=== PATIENT | male | born 1975 | race African-American/Black ===

== ENCOUNTER 2024-06-23 14:24 | Inpatient (IN) | payer MEDICAID, OTHER ==
[~2024-06-23] VITALS: Ht 177.8 cm; Wt 104.0 kg
--- NOTE | 2024-06-23 14:38 | ED.PDOC ---
HPI Comments This is a 48-year-old male who comes in with chief complaint of chest pain and palpitations. The patient states that approximately one week ago he started having some dizziness. The patient states that now the symptoms seemed to be more constant. He is experiencing some sharp chest pain rated as a 7/10. There is no radiation of the pain. There has been no shortness a breath, fever or chills. The patient drove himself to the emergency department's for evaluation. The patient does have a history of atrial fibrillation. Upon arrival, the patient had an Accu-Chek of 115. Chief Complaint: Palpitations Time Seen by MD: 14:26 Reviewed Notes: Nurses Notes, Medications, Allergies (No allergies to medications) Allergies: Coded Allergies: Marijuana (Cannabis Sativa) (Verified Allergy, Unknown, 06/23/24) Information Source: Patient Mode of Arrival: Ambulatory Severity: Moderate Timing: Hours Duration: Since onset Prehospital treatment: None Location: Substernal Radiation: No Radiation Quality: Sharp Onset: At Rest Cardiac Risk Factors: Smoker, Family History, Hyperlipidemia, HTN PE Risk Factors: None History of: Similar pain in past Modifying Factors: Nothing Associated Signs and Symptoms: Palpitations, Other (Dizziness) Past Medical History PAST MEDICAL HISTORY: AFIB, High Lipids, HTN Past Medical History (Other): Neuropathy, tachycardic Surgical History: Denies all surgeries Constitutional: denies: chills, diaphoresis, fatigue, fever, malaise, sweats, weakness, others EENTM: denies: blurred vision, double vision, ear bleeding, ear discharge, ear drainage, ear pain, ear ringing, eye pain, eye redness, hearing loss, mouth pain, mouth swelling, nasal discharge, nose bleeding, nose congestion, nose pain, photophobia, tearing, throat pain, throat swelling, voice changes, others Respiratory: denies: cough, hemoptysis, orthopnea, SOB at rest, shortness of breath, SOB with excertion, stridor, wheezing, others Cardiovascular: reports: chest pain, palpitations; denies: dizzy spells, diaphoresis, Dyspnea on exertion, edema, irregular heart beat, left arm pain, lightheadedness, PND, syncope, others Gastrointestinal: denies: abdomen distended, abdominal pain, blood streaked bowels, constipated, diarrhea, dysphagia, difficulty swallowing, hematemesis, melena, nausea, poor appetite, poor fluid intake, rectal bleeding, rectal pain, vomiting, others Genitourinary: denies: burning, dysuria, flank pain, frequency, hematuria, incontinence, penile discharge, penile sore, pain, testicle pain, testicle swelling, urgency, others Neurological: reports: dizziness; denies: fainting, headache, left sided numbness, left sided weakness, numbness, paresthesia, pre-existing deficit, right sided numbness, right sided weakness, seizure, speech problems, tingling, tremors, weakness, others Musculoskeletal: denies: back pain, gout, joint pain, joint swelling, muscle pain, muscle stiffness, neck pain, others Integumetry: denies: bruises, change in color, change in hair/nails, dryness, laceration, lesions, lumps, rash, wounds, others Allergic/Immunocompromised: denies: Difficulty Healing, Frequent Infections, Hives, Itching, others Hematologic/Lymphatic: denies: anemia, blood clots, easy bleeding, easy bruising, swollen glands, others Endocrine: denies: excessive hunger, excessive sweating, excessive thirst, excessive urination, flushing, intolerance to cold, intolerance to heat, unexplained weight gain, unexplained weight loss, others Psychiatric: denies: anxiety, bipolar disorder, depression, hopeless, panic disorder, schizophrenia, sleepless, suicidal, others Physical Exam General Appearance: Moderate Distress HEENT: Normal ENT Inspection, Pharynx Normal, TMs Normal Neck: Full Range of Motion, Non-Tender, Normal, Normal Inspection Respiratory: Chest Non-Tender, Lungs Clear, No Accessory Muscle Use, No Respiratory Distress, Normal Breath Sounds Cardiovascular: Irregular, No Edema, No JVD, No Murmur, No Gallop Breast Exam: Deferred Gastrointestinal: No Organomegaly, Non Tender, No Pulsatile Mass, Normal Bowel Sounds, Soft Genitalia: Deferred Pelvic: Deferred Rectal: Deferred Extremities: No calf tenderness, Normal capillary refill, Normal inspection, Normal range of motion, Non-tender, No pedal edema Musculoskeletal : Apperance: Normal Neurologic: Alert, supervising editor trailer II-XII nml as Tested, Motor Weakness, Normal Affect, Normal Mood, No Sensory Deficits Cerebellar Function: Normal Reflexes: Normal Skin: Dry, Normal Color, Warm Lymphatic: No Adenopathy EKG EKG : Pulse Rate (adult): 80 Mccarr: Normal Cardiac Rhythm: NSR Block: None ST: Nonsp Was a procedure done? Was a procedure done?: No CP Differential Dx Differential Diagnosis: Angina, DC, Pulmonary Embolus Differential Diagnosis: CHF Differential Diagnosis: Pericarditis X-Ray, Labs, Meds, VS Vital Signs Date Time Temp Pulse Resp B/P (MAP) Pulse Ox O2 Delivery O2 Flow Rate FiO2 06/23/24 15:46 98.3 72 19 137/88 (104) 98 98.3 06/23/24 15:46 72 19 98 Room Air 06/23/24 15:21 76 06/23/24 14:37 99.6 83 16 149/91 (110) 98 Lab Test 06/23/24 15:32 06/23/24 14:30 Range/Units Troponin I High Sensitivity 7 6 </=54 ng/L White Blood Count 10.3 4.4-10.8 10^3/uL Red Blood Count 5.56 4.5-5.90 10^6/uL Hemoglobin 13.2 L 13.5-17.5 g/dL Hematocrit 41.4 41.0-53.0 % Mean Corpuscular Volume 74.4 L 80.0-100.0 fL Mean Corpuscular Hemoglobin 23.8 L 28.0-32.0 pg Mean Corpuscular Hemoglobin Concent 32.0 32.0-36.0 g/dL Red Cell Distribution Width 15.2 H 11.8-14.3 % Platelet Count 360 140-450 10^3/uL Mean Platelet Volume 7.1 6.9-10.8 fL Neutrophils (%) (Auto) 50.5 37.0-80.0 % Lymphocytes (%) (Auto) 40.7 10.0-50.0 % Monocytes (%) (Auto) 6.7 0.0-12.0 % Eosinophils (%) (Auto) 1.3 0.0-7.0 % Basophils (%) (Auto) 0.8 0.0-2.0 % Neutrophils # (Auto) 5.2 1.6-8.6 10 ^3/uL Lymphocytes # (Auto) 4.2 0.4-5.4 10 ^3/uL Monocytes # (Auto) 0.7 0-1.3 10 ^3/uL Eosinophils # (Auto) 0.1 0-0.8 10 ^3/uL Basophils # (Auto) 0.1 0-0.2 10 ^3/uL Nucleated Red Blood Cells 0.4 % Sodium Level 143 136-145 mmol/L Potassium Level 3.7 3.5-5.1 mmol/L Chloride Level 108 H 98-107 mmol/L Carbon Dioxide Level 29 20-31 mmol/L Anion Gap 6 5-15 Blood Urea Nitrogen 10 9-23 mg/dL Creatinine 1.21 0.700-1.30 mg/dL Glomerular Filtration Rate Calc 73 >90 mL/min BUN/Creatinine Ratio 8.3 L 10.0-20.0 Serum Glucose 118 H 74-106 mg/dL Calcium Level 9.7 8.7-10.4 mg/dL Current Medications Medications (Trade) Dose Ordered Sig/Huy Route Start Time Stop Time Status Last Admin Aspirin 162 mg ONCE ONCE PO 06/23/24 14:45 06/23/24 14:46 DC 06/23/24 15:50 IV Hep-Lock was established The patient was given aspirin 162 mg by mouth The patient's CBC and chemistry panel are within normal limits The troponin level is within normal limits x2 At this time, the patient is being admitted to the hospitalist. The patient was still experiencing some palpitations as well as the pressure We will get a Cardiology consult. Images Reviewed?: Images reviewed and evaluated by me Time of 1ST Reevaluation: 16:50 Reevaluation 1ST: Unchanged Patient Education/Counseling: Diagnosis, Treatment, Prognosis Family Education/Counseling: No Family Present Departure 1 Departure Time of Disposition: 16:51 Impression: Primary Impression: Palpitations Additional Impression: Acute myocardial ischemia Disposition: 09 ADMITTED INPATIENT Admit to: Tele Condition: Fair Critical Care Note Critical Care Time?: Yes (35 min-critical care time only) Stability Stability form required: Yes Unstable for transfer: Telemetry monitoring (Telemetry monitoring required), ED Physician Assesment (Clinical assesment) Heart Score Heart Score: Heart Score Response (Comments) Value History Moderate Suspicious 1 EKG Normal 0 Age 45-64 1 Risk Factors >3 or Hx ASHD 2 Troponin Normal limit 0 Total 4 TIGIST ARELLANO MD Jun 23, 2024 14:38
[2024-06-23 14:53] LABS: Basophils # (auto) 0.1 10 ^3/uL (0-0.2); Basophils % (auto) 0.8 % (0.0-2.0); Eosinophils # (auto) 0.1 10 ^3/uL (0-0.8); Eosinophils % (auto) 1.3 % (0.0-7.0); Hematocrit 41.4 % (41.0-53.0); Hemoglobin 13.2 g/dL (13.5-17.5); Lymphocytes # (auto) 4.2 10 ^3/uL (0.4-5.4); Lymphocytes % (auto) 40.7 % (10.0-50.0); Mean Corpuscular Hemoglobin 23.8 pg (28.0-32.0); Mean Corpuscular Volume 74.4 fL (80.0-100.0); Monocytes # (auto) 0.7 10 ^3/uL (0-1.3); Monocytes % (auto) 6.7 % (0.0-12.0); Neutrophils # (auto) 5.2 10 ^3/uL (1.6-8.6); Neutrophils % (auto) 50.5 % (37.0-80.0); Nucleated Red Blood Cells % 0.4 %; Platelet Count (auto) 360 10^3/uL (140-450); Red Blood Cells 5.56 10^6/uL (4.5-5.90); Red Cell Distribution Width 15.2 % (11.8-14.3); White Blood Cell 10.3 10^3/uL (4.4-10.8)
[2024-06-23 14:54] LABS: Chloride 108 mmol/L (98-107); Potassium 3.7 mmol/L (3.5-5.1); Sodium 143 mmol/L (136-145)
[2024-06-23 14:55] LABS: Anion Gap 6 (5-15); Calcium 9.7 mg/dL (8.7-10.4); Carbon Dioxide 29 mmol/L (20-31)
[2024-06-23 15:00] LABS: BUN/Creatinine Ratio 8.3 (10.0-20.0); Blood Urea Nitrogen 10 mg/dL (9-23); Glucose 118 mg/dL (74-106)
--- NOTE | 2024-06-23 15:03 | DVH ---
EXAM: XY CHEST TWO VIEWS ROUTINE CLINICAL HISTORY: palpitations COMPARISON: None TECHNIQUE: Frontal and lateral view of the chest was obtained FINDINGS: Lines and Tubes: None Lungs: No focal consolidation. Pleura: No effusion. No pneumothorax. Cardiomediastinal contours: Unremarkable Bones: No acute osseous abnormality. IMPRESSION: No acute cardiopulmonary disease.
[2024-06-23] MEDS: ASPirin 81 mg TAB PO ONE (15:50)
[2024-06-23] MEDS ORDERED: ACETAMINOPHEN 325 MG TAB PO PRN (18:30)
[2024-06-23] MEDS ORDERED: HYDROcodone-ACET 5/325MG TAB PO PRN (18:30)
[2024-06-23] MEDS ORDERED: NITROGLYCERIN 0.4 MG SL TAB SL PRN (18:30)
[2024-06-23] MEDS ORDERED: DOCUSATE SOD 100 MG CAP PO PRN (18:30)
[2024-06-23] MEDS ORDERED: ONDANSETRON HCL 4 MG/2 ML VIAL IV PRN (18:30)
[2024-06-23] MEDS ORDERED: MORPHINE SULFATE INJ 2 MG/ml SYRG IV PRN (18:30)
[2024-06-23] MEDS ORDERED: APIX5TAB PO (18:36)
[2024-06-23] MEDS ORDERED: LOSA-534 PO (18:36)
[2024-06-23] MEDS ORDERED: ATOR20TA50 PO (18:37)
[2024-06-23] MEDS ORDERED: METO25TA5 PO (18:37)
--- NOTE | 2024-06-23 18:47 | DVHHP2 ---
History of Present Illness Reason for Visit: Palpitations History of Present Illness Radha Mena is a 48-year-old male with past medical history of hypertension, atrial fibrillation, and hyperlipidemia, who comes in with complaints of palpitations and shortness of breath. Patient states he was diagnosed with atrial fibrillation about 1 year ago. He states for almost a week he has been experiencing intermittent palpitations and shortness of breath. He states that he has checked his pulse during these events with his BP machine and his heart rate has been in the 160's at tines. He states he is experiencing associated dizziness and headaches at the times of his palpitations. Cardiovascular: HTN, hyperipidemia Past Surgical History: Appendectomy, Other (spinal and neck surgery) Smoke: <1 pack per day ALCOHOL: rare Drugs: None Lives: with Family Domestic Violence: Neg Review of Systems Constitutional: No: Fever, Chills, Sweats, Weakness, Malaise, Other Eyes: No: Pain, Vision change, Conjunctivae inflammation, Eyelid inflammation, Other, Redness ENT: No: Ear pain, Ear discharge, Nose pain, Nose discharge, Nose congestion, Mouth pain, Mouth swelling, Throat pain, Throat swelling, Other Respiratory: Shortness of breath; No: Cough, Dry, SOB with excertion, Wheezing, Hemoptysis, Pleuritic Pain, Sputum, Wheezing, Other Cardiovascular: Palpitations; No: Chest Pain, Orthopnea, Paroxysmal Noc. Dyspnea, Edema, Lt Headedness, Other Gastrointestinal: No: Nausea, Vomiting, Abdominal Pain, Diarrhea, Constipation, Melena, Hematochezia, Other Genitourinary: No Dysuria, No Frequency, No Incontinence, No Hematuria, No Retention, No Other Musculoskeletal: No: other, neck pain, shoulder pain, arm pain, back pain, hand pain, leg pain, foot pain Skin: No: Rash, Lesions, Jaundice, Bruising, Other Neurological: No: Weakness, Numbness, Incoordination, Change in speech, Confusion, Seizures, Other Allergies: Coded Allergies: Marijuana (Cannabis Sativa) (Verified Allergy, Unknown, 06/23/24) Medications Current Medications Medications Dose Ordered Sig/Huy Route Start Time Stop Time Status Last Admin Dose Admin Sodium Chloride 10 ml Q8HR IV 06/23/24 22:00 UNV Acetaminophen/ Hydrocodone Bitart 1 tab Q4HP PRN PO 06/23/24 18:30 UNV Ondansetron HCl 4 mg Q4HP PRN IV 06/23/24 18:30 UNV Docusate Sodium 100 mg BIDPRN PRN PO 06/23/24 18:30 UNV Acetaminophen 650 mg Q6HP PRN PO 06/23/24 18:30 UNV Nitroglycerin 0.4 mg Q5MINP PRN SL 06/23/24 18:30 UNV Morphine Sulfate 2 mg Q30M PRN IV 06/23/24 18:30 UNV Exam Vital Signs Vital Signs Date Time Temp Pulse Resp B/P (MAP) Pulse Ox O2 Delivery O2 Flow Rate FiO2 06/23/24 17:40 79 14 154/99 (117) 99 06/23/24 15:46 98.3 98.3 06/23/24 15:46 Room Air General Appearance: Alert, Cooperative, mild distress HEENT: Atraumatic, PERRLA, Mucous membr. moist/pink Respiratory: Clear to auscultation, Normal air movement Cardiovascular: Regular rate, Normal S1, Normal S2 Abdominal: Normal bowel sounds, Soft, No tenderness Extremities: No clubbing, No cyanosis, No edema, Normal pulses Skin: No rashes, No breakdown Neuro: Normal gait, Normal speech Psych/Mental Status: Mental status NL, Mood NL Labs/Xrays Labs Test 06/23/24 15:32 06/23/24 14:30 Range/Units Troponin I High Sensitivity 7 </=54 ng/L White Blood Count 10.3 4.4-10.8 10^3/uL Red Blood Count 5.56 4.5-5.90 10^6/uL Hemoglobin 13.2 L 13.5-17.5 g/dL Hematocrit 41.4 41.0-53.0 % Mean Corpuscular Volume 74.4 L 80.0-100.0 fL Mean Corpuscular Hemoglobin 23.8 L 28.0-32.0 pg Mean Corpuscular Hemoglobin Concent 32.0 32.0-36.0 g/dL Red Cell Distribution Width 15.2 H 11.8-14.3 % Platelet Count 360 140-450 10^3/uL Mean Platelet Volume 7.1 6.9-10.8 fL Neutrophils (%) (Auto) 50.5 37.0-80.0 % Lymphocytes (%) (Auto) 40.7 10.0-50.0 % Monocytes (%) (Auto) 6.7 0.0-12.0 % Eosinophils (%) (Auto) 1.3 0.0-7.0 % Basophils (%) (Auto) 0.8 0.0-2.0 % Neutrophils # (Auto) 5.2 1.6-8.6 10 ^3/uL Lymphocytes # (Auto) 4.2 0.4-5.4 10 ^3/uL Monocytes # (Auto) 0.7 0-1.3 10 ^3/uL Eosinophils # (Auto) 0.1 0-0.8 10 ^3/uL Basophils # (Auto) 0.1 0-0.2 10 ^3/uL Nucleated Red Blood Cells 0.4 % Sodium Level 143 136-145 mmol/L Potassium Level 3.7 3.5-5.1 mmol/L Chloride Level 108 H 98-107 mmol/L Carbon Dioxide Level 29 20-31 mmol/L Anion Gap 6 5-15 Blood Urea Nitrogen 10 9-23 mg/dL Creatinine 1.21 0.700-1.30 mg/dL Glomerular Filtration Rate Calc 73 >90 mL/min BUN/Creatinine Ratio 8.3 L 10.0-20.0 Serum Glucose 118 H 74-106 mg/dL Calcium Level 9.7 8.7-10.4 mg/dL Assessment/Plan Assessment/Plan Assessment: Palpitations, Hypertension, Hyperlipidemia, Atrial fibrillation, Plan: Admit to Tele, Cardiology consult, Recommend ECHO, Start ASA, Telemetry monitoring, Home medications reconciled, Plan discussed with: Patient My Orders Orders - LUZMARIA CRUZ Procedure Category Date Status Time Admit ADMIT 06/23/24 Transmitted 18:29 Code Status CODE 06/23/24 Transmitted 18:29 2 Gm Sodium Diet DIET 06/23/24 Transmitted Dinner Sodium Chloride Lock PHA 06/23/24 Logged (Saline Lock Ns) 22:00 Hydrocodone-Acet PHA 06/23/24 Logged 5/325mg Tab ([place] 18:30 Ondansetron Hcl PHA 06/23/24 Logged (Zofran) 18:30 Docusate Sodium PHA 06/23/24 Logged Capsule (Colace 18:30 Complete Blood Count LAB 06/24/24 Verified 04:00 Comprehensive LAB 06/24/24 Verified Metabolic Panel 04:00 Condition: Serious ZACHARY 06/23/24 In Process 18:29 Acetaminophen Tablet PHA 06/23/24 Logged (Tylenol Tablet) 18:30 Nitroglycerin PHA 06/23/24 Logged Sublingual (Ntrostat 18:30 Morphine Sulfate PHA 06/23/24 Logged Injection 18:30 Stat Ekg For Chest ZACHARY 06/23/24 In Process Pain 18:29 Notify Md Of Changes [facility] 06/23/24 In Process From Base 18:29 Marshmallow Maker For [facility] 06/23/24 In Process 24 Hours 18:29 Emergency Dysrhythmia [facility] 06/23/24 In Process Protocol 18:29 Rhythm Strips Once [facility] 06/23/24 In Process Every Shift 18:29 Oxygen By Nasal RT 06/23/24 Transmitted Cannula 18:29 * Cardiology Consult CONS 06/23/24 Transmitted 18:29 Apixaban (Eliquis) PHA 06/23/24 Verified 22:00 Atorvastatin (Lipitor) PHA 06/23/24 Verified 22:00 Losartan Tablet PHA 06/24/24 Verified (Cozaar Tablet) 10:00 Metoprolol Tartrate PHA 06/23/24 Verified Tablet (Lopressor Ta 22:00 Date of Service: Jun 23, 2024 Billing Provider: LUZMARIA CRUZ Common Visit Codes: [id number] INP/OBS CARE (MOD) LUZMARIA CRUZ Jun 23, 2024 18:47
[2024-06-23] MEDS: APIXABAN 5 MG TAB PO SCH (22:00)
[2024-06-23] MEDS: METOPROLOL TARTRATE 25 MG TAB PO SCH (22:00)
[2024-06-23] MEDS: ATORVASTATIN 20 MG TAB PO SCH (22:00)
[2024-06-23] MEDS: SODIUM CHLOR 0.9% PF (SALINE LOCK) 10ML VIAL/SYR IV SCH (22:15)
[2024-06-24] VITALS (11 sets, daily range): BP systolic 128–161; BP diastolic 77–88; PULSE 62–80; RESP 16–18; TEMP 97.5–98.1; O2SAT 96–99
--- NOTE | 2024-06-24 04:32 | ECG ---
[facility] Test Date: 2024-06-23 Test Time: 15:29:17 Pat Name: NOÉ FINK Department: ED Room: [facility]1T A Gender: M Elementary Tutor: PETER : 1975 Requested By: TIGIST ARELLANO Order Number: [id number] Reading MD: Jack Morfin Measurements Intervals [place] Rate: 76 P: 38 NV: 170 QRS: 6 QRSD: 82 T: 26 QT: 359 QTc: 404 Interpretive Statements Sinus rhythm Probable left atrial enlargement Anteroseptal infarct, old Electronically Signed On 06-24-2024 9:31:42 PDT by Jack Morfin Please click the below link to view image of tracing.
--- NOTE | 2024-06-24 04:39 | ECG ---
[facility] Test Date: 2024-06-23 Test Time: 14:29:05 Pat Name: NOÉ FINK Department: ER Room: [facility]1T A Gender: M Surgical Physician Assistant: JUDI : 1975 Requested By: TIGIST ARELLANO Order Number: [id number] Reading MD: Jack Morfin Measurements Intervals [place] Rate: 80 P: 51 MD: 168 QRS: 22 QRSD: 78 T: 45 QT: 358 QTc: 413 Interpretive Statements Sinus rhythm Multiple premature complexes, vent & supraven Anteroseptal infarct, old Baseline wander in lead(s) V3 Electronically Signed On 06-24-2024 9:31:33 PDT by Jack Morfin Please click the below link to view image of tracing.
[2024-06-24 06:46] LABS: Alanine Aminotransferase 60 U/L (7-40); Albumin 3.9 g/dL (3.2-4.8); Alkaline Phosphatase 80 U/L (46-116); Anion Gap 5 (5-15); Aspartate Aminotransferase 39 U/L (13-40); BUN/Creatinine Ratio 8.6 (10.0-20.0); Blood Urea Nitrogen 9 mg/dL (9-23); Carbon Dioxide 29 mmol/L (20-31); Chloride 110 mmol/L (98-107); Glucose 96 mg/dL (74-106); Potassium 3.4 mmol/L (3.5-5.1); Sodium 144 mmol/L (136-145)
[2024-06-24 06:47] LABS: Bilirubin, Total 0.2 mg/dL (0.2-1.0)
[2024-06-24 06:48] LABS: Basophils % (auto) 0.5 % (0.0-2.0); Eosinophils # (auto) 0.2 10 ^3/uL (0-0.8); Lymphocytes # (auto) 4.2 10 ^3/uL (0.4-5.4); Lymphocytes % (auto) 42.8 % (10.0-50.0); Neutrophils # (auto) 4.6 10 ^3/uL (1.6-8.6); White Blood Cell 9.8 10^3/uL (4.4-10.8)
[2024-06-24 06:51] LABS: Basophils # (auto) 0.1 10 ^3/uL (0-0.2); Eosinophils % (auto) 1.8 % (0.0-7.0); Hematocrit 37.7 % (41.0-53.0); Hemoglobin 12.1 g/dL (13.5-17.5); Mean Corpuscular Hgb Conc. 32.2 g/dL (32.0-36.0); Mean Corpuscular Volume 74.4 fL (80.0-100.0); Monocytes # (auto) 0.7 10 ^3/uL (0-1.3); Monocytes % (auto) 7.6 % (0.0-12.0); Neutrophils % (auto) 47.3 % (37.0-80.0); Nucleated Red Blood Cells % 0.3 %; Platelet Count (auto) 291 10^3/uL (140-450); Red Blood Cells 5.06 10^6/uL (4.5-5.90); Red Cell Distribution Width 14.9 % (11.8-14.3)
[2024-06-24 09:33] LABS: Phosphorus 4.1 mg/dL (2.4-5.1)
[2024-06-24] MEDS: POTASSIUM EFFERVESENT TAB 25 MEQ PO ONE (09:42)
[2024-06-24] MEDS: LOSARTAN POTASSIUM 50 MG TAB PO SCH (09:44)
[2024-06-24 10:26] LABS: INR 0.98 (0.9-1.15); Partial Thromboplastin Time 28.1 SEC (24.5-34.5); Prothrombin Time 10.4 sec (9.3-11.8)
--- NOTE | 2024-06-24 13:41 | DVHCONRES ---
Date Seen: Jun 24, 2024 Resident Creating Document: MARISOL GRIMES RESIDENT Referring Physician Dr. Lundberg Reason for Consultation Palpitations History of Present Illness 53-year-old male patient with past medical history of hypertension, atrial fibrillation diagnosed 1 year ago, hyperlipidemia, neuropathy secondary to a nerve damage following back surgery, who presented to the emergency department with a chief complaint of palpitations, shortness of breaths and chest pain. Patient reports that the chest pain has been intermittent over the past 7 days, described as sharp, stabbing pain localized in the center of the chest. He states that the pain comes and goes without a clear pattern and has not improved over time. He also notes associated palpitations and dyspnea. The chest discomfort is not related to physical activity, and he denies radiation, pressure-like chest pain or relief with rest. Upon arrival to the ER the patient's blood pressure was elevated at 150/100 mm Hg and his heart rate fluctuating up to 160 beats per minute and EKG confirmed atrial fibrillation with RVR. Laboratory work was unremarkable except for mild hypokalemia which was replaced. Troponin levels were negative, and chest x-ray showed no cardiomegaly or acute pulmonary findings. In the ER the patient received 25 mg of metoprolol and 5 mg of Eliquis. An echocardiogram was ordered was his cardiac function and any stru ctural abnormalities even his patient's symptoms and history of atrial fibrillation. Family History: Patient reports no known family medical history. Allergies: Coded Allergies: Marijuana (Cannabis Sativa) (Verified Allergy, Unknown, 06/23/24) Home Meds Active Scripts Meclizine Hcl (Meclizine Hcl) 25 Mg Tab, 25 MG PO Q6HPRN PRN for 14 Days, #56 TAB Prov:FRANCISCO JAVIER MEDRANO RESIDENT 06/24/24 Reported Medications Atorvastatin Calcium (ATORVASTATIN CALCIUM) 20 Mg Tab, 1 TAB PO HS, #30 TAB 5 Refills 06/23/24 Metoprolol Tartrate (Metoprolol Tartrate) 25 Mg Tab, 1 TAB PO BID, #180 TAB 1 Refill 06/23/24 Losartan Potassium (Losartan Potassium) 50 Mg Tab, 1 TAB PO DAILY, #30 TAB 5 Refills 06/23/24 Apixaban Base (ELIQUIS) 5 Mg Tab, 5 MG PO BID, TAB 06/23/24 Current Medications Current Medications Medications (Trade) Dose Ordered Sig/Huy Route PRN Reason Start Time Stop Time Status Last Admin Sodium Chloride (Saline Lock Ns) 10 ml Q8HR IV 06/23/24 22:00 06/24/24 06:06 Acetaminophen/ Hydrocodone Bitart ([place] 5/325MG Tab) 1 tab Q4HP PRN PO MODERATE PAIN (4-6 PAIN SCALE) 06/23/24 18:30 Ondansetron HCl (Zofran) 4 mg Q4HP PRN IV NAUSEA / VOMITING 06/23/24 18:30 Docusate Sodium (Colace Capsule) 100 mg BIDPRN PRN PO FOR CONSTIPATION 06/23/24 18:30 Acetaminophen (Tylenol Tablet) 650 mg Q6HP PRN PO PAIN SCALE 1-3 OR TEMP>100.4 06/23/24 18:30 Nitroglycerin (Ntrostat Sublingual) 0.4 mg Q5MINP PRN SL FOR CHEST PAIN 06/23/24 18:30 Morphine Sulfate 2 mg Q30M PRN IV FOR CHEST PAIN 06/23/24 18:30 Apixaban (Eliquis) 5 mg BID PO 06/23/24 22:00 06/24/24 09:45 Atorvastatin Calcium (Lipitor) 20 mg HS PO 06/23/24 22:00 Losartan Potassium (Cozaar Tablet) 50 mg DAILY PO 06/24/24 10:00 06/24/24 09:44 Metoprolol Tartrate (Lopressor Tablet) 25 mg BID PO 06/23/24 22:00 06/24/24 09:44 Vital Signs Vital Signs Date Time Temp Pulse Resp B/P (MAP) Pulse Ox O2 Delivery O2 Flow Rate FiO2 06/24/24 13:27 98.1 78 18 140/88 (105) 98 98.1 06/24/24 08:00 Room Air* 0 21 Labs/Diagnostic Data Labs Test 06/24/24 05:59 06/23/24 15:32 Range/Units White Blood Count 9.8 4.4-10.8 10^3/uL Red Blood Count 5.06 4.5-5.90 10^6/uL Hemoglobin 12.1 L 13.5-17.5 g/dL Hematocrit 37.7 L 41.0-53.0 % Mean Corpuscular Volume 74.4 L 80.0-100.0 fL Mean Corpuscular Hemoglobin 24.0 L 28.0-32.0 pg Mean Corpuscular Hemoglobin Concent 32.2 32.0-36.0 g/dL Red Cell Distribution Width 14.9 H 11.8-14.3 % Platelet Count 291 140-450 10^3/uL Mean Platelet Volume 7.2 6.9-10.8 fL Neutrophils (%) (Auto) 47.3 37.0-80.0 % Lymphocytes (%) (Auto) 42.8 10.0-50.0 % Monocytes (%) (Auto) 7.6 0.0-12.0 % Eosinophils (%) (Auto) 1.8 0.0-7.0 % Basophils (%) (Auto) 0.5 0.0-2.0 % Neutrophils # (Auto) 4.6 1.6-8.6 10 ^3/uL Lymphocytes # (Auto) 4.2 0.4-5.4 10 ^3/uL Monocytes # (Auto) 0.7 0-1.3 10 ^3/uL Eosinophils # (Auto) 0.2 0-0.8 10 ^3/uL Basophils # (Auto) 0.1 0-0.2 10 ^3/uL Nucleated Red Blood Cells 0.3 % Prothrombin Time 10.4 9.3-11.8 sec Prothrombin Time INR 0.98 0.9-1.15 Activated Partial Thromboplast Time 28.1 24.5-34.5 SEC Sodium Level 144 136-145 mmol/L Potassium Level 3.4 L 3.5-5.1 mmol/L Chloride Level 110 H 98-107 mmol/L Carbon Dioxide Level 29 20-31 mmol/L Anion Gap 5 5-15 Blood Urea Nitrogen 9 9-23 mg/dL Creatinine 1.05 0.700-1.30 mg/dL Glomerular Filtration Rate Calc 86 >90 mL/min BUN/Creatinine Ratio 8.6 L 10.0-20.0 Serum Glucose 96 74-106 mg/dL Hemoglobin A1c 6.1 H <5.7 % A1C Calcium Level 9.0 8.7-10.4 mg/dL Phosphorus Level 4.1 2.4-5.1 mg/dL Magnesium Level 2.0 1.6-2.6 mg/dL Total Bilirubin 0.2 0.2-1.0 mg/dL Aspartate Amino Transferase (AST) 39 13-40 U/L Alanine Aminotransferase (ALT) 60 H 7-40 U/L Alkaline Phosphatase 80 46-116 U/L Total Protein 6.0 5.7-8.2 g/dL Albumin 3.9 3.2-4.8 g/dL Triglycerides Level 153 H < 150 mg/dL Cholesterol Level 172 < 200 mg/dL LDL Cholesterol 103 H < 100 mg/dL HDL Cholesterol 43 40-59 mg/dL Vitamin B12 Level 571 211-911 pg/mL Vitamin D 25-Hydroxy 26.7 L 30.0-100 ng/mL Thyroid Stimulating Hormone (TSH) 2.61 0.55-4.78 uIU/mL Troponin I High Sensitivity 7 </=54 ng/L Assessment Paroxysmal atrial fibrillation Uncontrolled Hypertension, 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 Procardia 30 mg b.i.d. Follow-up with cardiology in the outpatient Monitor blood pressure closely Thank you for letting us participate in this case. Case discussed with Dr. Morrison Critical care, time spent: 43 minutes Plan discussed with: Patient Visit Coding Cardiology RES Date of Service: Jun 24, 2024 Billing Provider: GABRIELLE FARAH MD Cardiology Common Codes: [id number] INP/OBS CARE (High) MARISOL GRIMES RESIDENT Jun 24, 2024 13:41
[2024-06-24] MEDS ORDERED: MECL-90 PO (14:35)
--- NOTE | 2024-06-24 14:40 | DVHSR ---
APPROVED REPORT EXAM: Two-dimensional and M-mode echocardiogram with Doppler and color Doppler. Blood Pressure: 125/72 mmHg INDICATION AFIB RISK FACTORS Height: 70, Weight: 229 DIMENSIONS LVDd4.8 (3.8-5.7cm)LA (2D)4.7 (1.9-4.0cm)Aortic Root4.0 (2.0-3.7cm) LVDs3.2 (2.5-4.0cm)LA (MM) (1.9-4.0cm)Aortic Cusp Exc1.8 (1.5-2.0cm) EF (%) 60.0 (55-70%)Rt. Atrium5.1 (1.9-4.0cm)Asc. Aorta cm IVSd1.4 (0.7-1.1cm)RV (D) (1.8-2.4cm) PWd1.5 (0.7-1.1cm) Mitral Valve MitralMitral Stenosis E wave0.78m/sMV Mean GR.mmHg A wave0.49m/sMV Peak GR.116mmHg E/A ratio1.62D MVAcm2 DECEL [id number] 1/2 [id number] IVRTmsDop MVA3.24cm2 Aortic Valve Aortic ValveAortic Stenosis V11.28m/Luna Mean GR.3mmHg V21.29m/Luna Peak GR.7mmHg LVOT Diameter2.2 (1.8-2.4cm)Doppler AVA3.77cm2 Pulmonic Valve V21.09m/s Tricuspid Valve TR Velocity2.20m/s [id number] Conclusion Normal left ventricular size and dimension. Normal left ventricular systolic function estimated ejec tion fraction 55%. There is a grade1 diastolic dysfunction. Normal right ventricular size and dimension. Normal right ventricular systolic function. Normal biatrial size and dimension. Normal aortic valve structure and function. There is a mild mitral valve regurgitation. Normal tricuspid valve structure and function. The pulmonary valve is grossly normal. No pericardial effusion.
[2024-06-24] MEDS ORDERED: NIFEdipine ER 30 MG TAB PO ONE (18:30)
[2024-06-25] MEDS ORDERED: NIFEdipine ER 30 MG TAB PO SCH ×2 (10:00)
--- NOTE | 2024-06-25 18:54 | DVHDSRES ---
Discharge Summary Date of Admission Resident Creating Document: RK NELSON Jun 23, 2024 at 19:30 Date of Discharge: Jun 24, 2024 Admitting Diagnosis Paroxysmal atrial fibrillation Labs/Diagnostic Data: Laboratory Results Test 06/24/24 05:59 06/23/24 15:32 White Blood Count 9.8 10^3/uL (4.4-10.8) Red Blood Count 5.06 10^6/uL (4.5-5.90) Hemoglobin 12.1 g/dL (13.5-17.5) Hematocrit 37.7 % (41.0-53.0) Mean Corpuscular Volume 74.4 fL (80.0-100.0) Mean Corpuscular Hemoglobin 24.0 pg (28.0-32.0) Mean Corpuscular Hemoglobin Concent 32.2 g/dL (32.0-36.0) Red Cell Distribution Width 14.9 % (11.8-14.3) Platelet Count 291 10^3/uL (140-450) Mean Platelet Volume 7.2 fL (6.9-10.8) Neutrophils (%) (Auto) 47.3 % (37.0-80.0) Lymphocytes (%) (Auto) 42.8 % (10.0-50.0) Monocytes (%) (Auto) 7.6 % (0.0-12.0) Eosinophils (%) (Auto) 1.8 % (0.0-7.0) Basophils (%) (Auto) 0.5 % (0.0-2.0) Neutrophils # (Auto) 4.6 10 ^3/uL (1.6-8.6) Lymphocytes # (Auto) 4.2 10 ^3/uL (0.4-5.4) Monocytes # (Auto) 0.7 10 ^3/uL (0-1.3) Eosinophils # (Auto) 0.2 10 ^3/uL (0-0.8) Basophils # (Auto) 0.1 10 ^3/uL (0-0.2) Nucleated Red Blood Cells 0.3 % Prothrombin Time 10.4 sec (9.3-11.8) Prothrombin Time INR 0.98 (0.9-1.15) Activated Partial Thromboplast Time 28.1 SEC (24.5-34.5) Sodium Level 144 mmol/L (136-145) Potassium Level 3.4 mmol/L (3.5-5.1) Chloride Level 110 mmol/L (98-107) Carbon Dioxide Level 29 mmol/L (20-31) Anion Gap 5 (5-15) Blood Urea Nitrogen 9 mg/dL (9-23) Creatinine 1.05 mg/dL (0.700-1.30) Glomerular Filtration Rate Calc 86 mL/min (>90) BUN/Creatinine Ratio 8.6 (10.0-20.0) Serum Glucose 96 mg/dL (74-106) Hemoglobin A1c 6.1 % A1C (<5.7) Calcium Level 9.0 mg/dL (8.7-10.4) Phosphorus Level 4.1 mg/dL (2.4-5.1) Magnesium Level 2.0 mg/dL (1.6-2.6) Total Bilirubin 0.2 mg/dL (0.2-1.0) Aspartate Amino Transferase (AST) 39 U/L (13-40) Alanine Aminotransferase (ALT) 60 U/L (7-40) Alkaline Phosphatase 80 U/L (46-116) Total Protein 6.0 g/dL (5.7-8.2) Albumin 3.9 g/dL (3.2-4.8) Triglycerides Level 153 mg/dL (< 150) Cholesterol Level 172 mg/dL (< 200) LDL Cholesterol 103 mg/dL (< 100) HDL Cholesterol 43 mg/dL (40-59) Vitamin B12 Level 571 pg/mL (211-911) Vitamin D 25-Hydroxy 26.7 ng/mL (30.0-100) Thyroid Stimulating Hormone (TSH) 2.61 uIU/mL (0.55-4.78) Troponin I High Sensitivity 7 ng/L (</=54) Other Laboratory Tests 06/24/24 05:59 Brief Hx & Hospital Course: Noé Mena is a 48-year-old male with a past medical history of hypertension, atrial fibrillation, and hyperlipidemia, who comes in with complaints of palpitations and shortness of breath. The patient states he was diagnosed with atrial fibrillation about 1 year ago. He states that for almost a week he has been experiencing intermittent palpitations and shortness of breath. He states that he has checked his pulse during these events with his BP machine, and his heart rate has been in the 160s at times. He states he is experiencing associated dizziness and headaches during the palpitations. The patient was admitted and put on telemetry for evaluation of atrial fibrillation. PMHx: HTN, hyperlipidemia, paroxysmal atrial fibrillation PSHx: Appendectomy, spinal and neck surgery Family history: Noncontributory Social history: Active smoker, denies alcohol or any other drug use. Home medication: Apixaban, atorvastatin, losartan, meclizine, metoprolol Allergic history: Marijuana Chest x-ray showed cephalization of pulmonary vessels. An echocardiogram showed normal left ventricular systolic function with an estimated ejection fraction of 55%. There is grade 1 diastolic dysfunction. Cardiology evaluated the patient and recommended follow-up on an outpatient basis. On 06/24/2024, the patient was feeling better since admission. The patient had no active complaints, and the dizziness had improved. The telemetry records showed 1 episode of atrial fibrillation during hospitalization. Electrolyte abnormalities were corrected. Orthostatic vitals were checked and showed no significant blood pressure or pulse rate drops. The discharge plan was discussed with the patient, and he was recommended to follow up with the PCP within 1 week after discharge and with Cardiology on an outpatient basis. Consults/Reason for consult Cardiology: Paroxysmal atrial fibrillation Operations or Procedures [place] [address] Ph: [phone] DIAGNOSTIC IMAGING Diagnostic Imaging Report : [id number] Signed PATIENT: NOÉ MENA ACCT: [id number] UNIT: [id number] : 1975 LOC: ER ROOM / BED: / AGE / SEX: 48 / M ADM STATUS: REG ER SERVICE 1436 ORDERING PHYSICIAN: TIGIST ARELLANO MD PROCEDURE(s): CXR2 - CHEST TWO VIEWS ROUTINE REASON: palpitations ORDER NUMBER(s): [id number], ACCESSION NUMBER(s): [id number] EXAM: XY CHEST TWO VIEWS ROUTINE CLINICAL HISTORY: palpitations COMPARISON: None TECHNIQUE: Frontal and lateral view of the chest was obtained FINDINGS: Lines and Tubes: None Lungs: No focal consolidation. Pleura: No effusion. No pneumothorax. Cardiomediastinal contours: Unremarkable Bones: No acute osseous abnormality. IMPRESSION: No acute cardiopulmonary disease. ATED BY: LORENA HADDAD MD DICTATED DATE/TIME: 06/23/241501 SIGNED BY: LORENA HADDAD MD SIGNED DATE/TIME: 06/23/241501 CC: [address] [address] Ph: [phone] DIAGNOSTIC IMAGING Diagnostic Imaging Report : [id number] Signed PATIENT: NOÉ MENA ACCT: [id number] UNIT: [id number] : 1975 LOC: [facility] AGE / SEX: 48 / M ADM STATUS: ADM IN SERVICE 6 ORDERING PHYSICIAN: MARISOL GRIMES RESIDENT PROCEDURE(s): ECIDC - ECHO 2D MODE CARDIAC DOP REASON: afib ORDER NUMBER(s): [id number], ACCESSION NUMBER(s): [id number] APPROVED REPORT EXAM: Two-dimensional and M-mode echocardiogram with Doppler and color Doppler. Blood Pressure: 125/72 mmHg INDICATION AFIB RISK FACTORS Height: 70, Weight: 229 DIMENSIONS LVDd 4.8 (3.8-5.7cm) LA (2D) 4.7 (1.9-4.0cm) Aortic Root 4.0 (2.0- 3.7cm) LVDs 3.2 (2.5-4.0cm) LA (MM) (1.9-4.0cm) Aortic Cusp Exc 1.8 (1.5- 2.0cm) EF (%) 60.0 (55-70%) Rt. Atrium 5.1 (1.9-4.0cm) Asc. Aorta cm IVSd 1.4 (0.7-1.1cm) RV (D) (1.8-2.4cm) PWd 1.5 (0.7-1.1cm) Mitral Valve Mitral Mitral Stenosis E wave 0.78m/s MV Mean GR. mmHg A wave 0.49m/s MV Peak GR. 116mmHg E/A ratio 1.6 2D MVA cm2 DECEL Time 251ms PRESS 1/2 Time 68ms IVRT ms Dop MVA 3.24cm2 Aortic Valve Aortic Valve Aortic Stenosis V1 1.28m/s AO Mean GR. 3mmHg V2 1.29m/s AO Peak GR. 7mmHg LVOT Diameter 2.2 (1.8-2.4cm) Doppler CATHLEEN 3.77cm2 Pulmonic Valve V2 1.09m/s Tricuspid Valve TR Velocity 2.20m/s RVSP 22mmHg Conclusion Normal left ventricular size and dimension. Normal left ventricular systolic function estimated ejection fraction 55%. There is a grade1 diastolic dysfunction. Normal right ventricular size and dimension. Normal right ventricular systolic function. Normal biatrial size and dimension. Normal aortic valve structure and function. There is a mild mitral valve regurgitation. Normal tricuspid valve structure and function. The pulmonary valve is grossly normal. No pericardial effusion. 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 Follow up with the repair weaver within 1 week. Medications: Meclizine Discharge Statement: "Patient was advised to return to the ER or call 911 if any headaches, dizziness, shortness of breath, chest pain, abdominal pain, bleeding, fevers, or worsening of medical condition. Patient was counseled about treatment plan, medications, possible side effects, patientverbalized understanding. All questions were answered to the best of my ability. This discharge took greater then 30 minutes in planning, reviewing documentation, counseling the patient, and discussing with other team members." ASSESSMENT ASSESSMENT Assessment Proxismal atrail fibrillation Date of Service: Jun 24, 2024 Billing Provider: FARZANEH RIOS MD Common Visit Codes: 51072-ZNJ/OBS DISCH DAY >30min MUKULRANJANMUKUL RUDDAinsley RESDIENT Jun 25, 2024 18:54 FARZANEH RIOS MD Jun 26, 2024 18:43
== END 2024-06-24 16:57 | disposition home or self-care (01) | DRG 201 ==
LOC: ER 14:24 → TELE-WESTW 18:36 → TELE 19:30 → TELE-WESTW 23:45
PROVIDERS: ADMIT Hospitalist; ATTEND Emergency Medicine
DX: I48.0 Paroxysmal atrial fibrillation (principal); E11.42 Type 2 diabetes mellitus with diabetic polyneuropathy; E87.8 Other disorders of electrolyte and fluid balance, not elsewhere classified; E55.9 Vitamin D deficiency, unspecified; E66.9 Obesity, unspecified; E78.5 Hyperlipidemia, unspecified; E87.6 Hypokalemia; I10 Essential (primary) hypertension; Z79.01 Long term (current) use of anticoagulants; Z87.891 Personal history of nicotine dependence; Z88.5 Allergy status to narcotic agent; Z68.32 Body mass index [BMI] 32.0-32.9, adult
CPT/HCPCS: 36415; 71046; 80048; 80053; 80061; 82306; 82607; 83036; 83735; 84100; 84443; 84484; 85025; 85610; 85730; 93005; 93306; 99291; G0378

== ENCOUNTER 2024-08-18 12:30 | Inpatient (IN) | payer MEDICAID ==
[~2024-08-18] VITALS: Ht 175.3 cm; Wt 103.0 kg
[~2024-08-18 12:30] MED LIST: APIX5TAB PO; ATOR20TA50 PO; LOSA-534 PO; MECL-90 PO; METO25TA5 PO
[2024-08-18 13:01] VITALS: BP 147/93; PULSE 102; RESP 16; O2SAT 98
[2024-08-18 14:03] LABS: Basophils # (auto) 0.1 10 ^3/uL (0-0.2); Basophils % (auto) 0.8 % (0.0-2.0); Eosinophils # (auto) 0.2 10 ^3/uL (0-0.8); Eosinophils % (auto) 1.5 % (0.0-7.0); Hematocrit 44.5 % (41.0-53.0); Hemoglobin 13.9 g/dL (13.5-17.5); Lymphocytes # (auto) 4.1 10 ^3/uL (0.4-5.4); Lymphocytes % (auto) 33.9 % (10.0-50.0); Mean Corpuscular Hemoglobin 23.5 pg (28.0-32.0); Mean Corpuscular Hgb Conc. 31.3 g/dL (32.0-36.0); Mean Corpuscular Volume 75.1 fL (80.0-100.0); Neutrophils # (auto) 6.8 10 ^3/uL (1.6-8.6); Neutrophils % (auto) 55.8 % (37.0-80.0); Platelet Count (auto) 372 10^3/uL (140-450); Red Blood Cells 5.93 10^6/uL (4.5-5.90); Red Cell Distribution Width 15.7 % (11.8-14.3); White Blood Cell 12.1 10^3/uL (4.4-10.8)
--- NOTE | 2024-08-18 14:04 | ED.PDOC ---
General HPI Comments 49 year old male presents to the ED with chief complaint of flank pain. Patient reports that he has been experiencing 10/10 right sided flank pain for the past 4 days with associated radiation to the right lower quadrant abdomen. Patient denies any dysuria, fever, chills, N/V/D, dizziness, or hematuria. Chief Complaint: Flank Pain Time Seen by MD: 14:01 Primary Care Provider: VIKKI Reviewed notes: Nurses Notes, Medications, Allergies Allergies: Coded Allergies: Marijuana (Cannabis Sativa) (Verified Allergy, Unknown, 06/23/24) Home Meds Active Scripts Meclizine Hcl (Meclizine Hcl) 25 Mg Tab, 25 MG PO Q6HPRN PRN for 14 Days, #56 TAB Prov:FRANCISCO JAVIER MEDRANO RESIDENT 06/24/24 Reported Medications Atorvastatin Calcium (ATORVASTATIN CALCIUM) 20 Mg Tab, 1 TAB PO HS, #30 TAB 5 Refills 06/23/24 Metoprolol Tartrate (Metoprolol Tartrate) 25 Mg Tab, 1 TAB PO BID, #180 TAB 1 Refill 06/23/24 Losartan Potassium (Losartan Potassium) 50 Mg Tab, 1 TAB PO DAILY, #30 TAB 5 Refills 06/23/24 Apixaban Base (ELIQUIS) 5 Mg Tab, 5 MG PO BID, TAB 06/23/24 Information Source: Patient Mode of Arrival: Ambulatory Severity: Moderate Inability to void: None Timing: Days Duration: Since onset Prehospital treatment: None Onset: Spontaneous Symptoms: None History of: None Location: (R) Flank Penile discharge: None Modifying factors: None associated signs and symptoms: Abdominal Pain, Flank Pain Past Medical History PAST MEDICAL HISTORY: AFIB, High Lipids, HTN Surgical History: Appendectomy Family History Family History: Reviewed,noncontributory to illness Social History Smoker: Cigarettes Alcohol: Denies ETOH Use Drugs: Denies Drug Use Lives In: Home Constitutional: denies: chills, diaphoresis, fatigue, fever, malaise, sweats, weakness, others EENTM: denies: blurred vision, double vision, ear bleeding, ear discharge, ear drainage, ear pain, ear ringing, eye pain, eye redness, hearing loss, mouth pain, mouth swelling, nasal discharge, nose bleeding, nose congestion, nose pain, photophobia, tearing, throat pain, throat swelling, voice changes, others Respiratory: denies: cough, hemoptysis, orthopnea, SOB at rest, shortness of breath, SOB with excertion, stridor, wheezing, others Cardiovascular: denies: chest pain, dizzy spells, diaphoresis, Dyspnea on exertion, edema, irregular heart beat, left arm pain, lightheadedness, palpitations, PND, syncope, others Gastrointestinal: reports: abdominal pain; denies: abdomen distended, blood streaked bowels, constipated, diarrhea, dysphagia, difficulty swallowing, hematemesis, melena, nausea, poor appetite, poor fluid intake, rectal bleeding, rectal pain, vomiting, others Genitourinary: reports: flank pain; denies: burning, dysuria, frequency, hematuria, incontinence, penile discharge, penile sore, pain, testicle pain, raven ticle swelling, urgency, others Neurological: denies: dizziness, fainting, headache, left sided numbness, left sided weakness, numbness, paresthesia, pre-existing deficit, right sided numbness, right sided weakness, seizure, speech problems, tingling, tremors, weakness, others Musculoskeletal: denies: back pain, gout, joint pain, joint swelling, muscle pain, muscle stiffness, neck pain, others Integumetry: denies: bruises, change in color, change in hair/nails, dryness, laceration, lesions, lumps, rash, wounds, others Allergic/Immunocompromised: denies: Difficulty Healing, Frequent Infections, Hives, Itching, others Hematologic/Lymphatic: denies: anemia, blood clots, easy bleeding, easy bruising, swollen glands, others Endocrine: denies: excessive hunger, excessive sweating, excessive thirst, excessive urination, flushing, intolerance to cold, intolerance to heat, unexplained weight gain, unexplained weight loss, others Psychiatric: denies: anxiety, bipolar disorder, depression, hopeless, panic disorder, schizophrenia, sleepless, suicidal, others All Other Systems: Reviewed and Negative Physical Exam General Appearance: Moderate Distress, Normal HEENT: Normal ENT Inspection, PERRL/EOMI Neck: Full Range of Motion, Non-Tender, Normal, Normal Inspection Respiratory: Chest Non-Tender, Lungs Clear, No Accessory Muscle Use, No Respiratory Distress, Normal Breath Sounds Cardiovascular: No Edema, No JVD, No Murmur, No Gallop, Normal Peripheral Pulses, Regular Rate/Rhythm Breast Exam: Deferred Gastrointestinal: No Organomegaly, Non Tender, No Pulsatile Mass, Normal Bowel Sounds, Soft Genitalia: Deferred Pelvic: Deferred Rectal: Deferred Extremities: No calf tenderness, Normal capillary refill, Normal inspection, Normal range of motion, Non-tender, No pedal edema Musculoskeletal : Apperance: Normal Neurologic: Alert, resident services director II-XII nml as Tested, No Motor Deficits, Normal Affect, Normal Mood, No Sensory Deficits Cerebellar Function: Normal Reflexes: Normal Skin: Dry, Normal Color, Warm Peripheral Pulses: 3+ Radial (R), 3+ Radial (L) Lymphatic: No Adenopathy Was a procedure done? Was a procedure done?: No Differential Diagnosis Kidney stone (Female): Musculoskeletal pain, Urinary obstruction, Urolithiasis X-Ray, Labs, Meds, VS Vital Signs Date Time Temp Pulse Resp B/P (MAP) Pulse Ox O2 Delivery O2 Flow Rate FiO2 08/18/24 13:01 98.5 102 16 147/93 (111) 98 Lab Test 08/18/24 14:07 08/18/24 13:41 Range/Units Urine Color Yellow Yellow Urine Clarity Clear Clear Urine pH 6.0 5.0-9.0 Urine Specific [place] 1.027 1.001-1.035 Urine Protein 1+ H Negative Urine Ketones Trace Negative Urine Blood Negative Negative /uL Urine Nitrite Negative Negative Urine Bilirubin Negative Negative Urine Urobilinogen 3 H Negative mg/dL Urine Leukocyte Esterase Negative Negative /uL Urine RBC 3 0 - 3 /hpf Urine WBC 1 0 - 3 /hpf Urine Squamous Epithelial Cells Few <5 /hpf Urine Bacteria None seen None Seen /hpf Urine Hyaline Casts Few 0 - 2 /lpf Urine Mucus Few None Seen Urine Glucose Normal Normal mg/dL White Blood Count 12.1 H 4.4-10.8 10^3/uL Red Blood Count 5.93 H 4.5-5.90 10^6/uL Hemoglobin 13.9 13.5-17.5 g/dL Hematocrit 44.5 41.0-53.0 % Mean Corpuscular Volume 75.1 L 80.0-100.0 fL Mean Corpuscular Hemoglobin 23.5 L 28.0-32.0 pg Mean Corpuscular Hemoglobin Concent 31.3 L 32.0-36.0 g/dL Red Cell Distribution Width 15.7 H 11.8-14.3 % Platelet Count 372 140-450 10^3/uL Mean Platelet Volume 7.6 6.9-10.8 fL Neutrophils (%) (Auto) 55.8 37.0-80.0 % Lymphocytes (%) (Auto) 33.9 10.0-50.0 % Monocytes (%) (Auto) 8.0 0.0-12.0 % Eosinophils (%) (Auto) 1.5 0.0-7.0 % Basophils (%) (Auto) 0.8 0.0-2.0 % Neutrophils # (Auto) 6.8 1.6-8.6 10 ^3/uL Lymphocytes # (Auto) 4.1 0.4-5.4 10 ^3/uL Monocytes # (Auto) 1.0 0-1.3 10 ^3/uL Eosinophils # (Auto) 0.2 0-0.8 10 ^3/uL Basophils # (Auto) 0.1 0-0.2 10 ^3/uL Nucleated Red Blood Cells 0.0 % Sodium Level 143 136-145 mmol/L Potassium Level 4.3 3.5-5.1 mmol/L Chloride Level 107 98-107 mmol/L Carbon Dioxide Level 32 H 20-31 mmol/L Anion Gap 4 L 5-15 Blood Urea Nitrogen 13 9-23 mg/dL Creatinine 1.38 H 0.700-1.30 mg/dL Glomerular Filtration Rate Calc 62 >90 mL/min BUN/Creatinine Ratio 9.4 L 10.0-20.0 Serum Glucose 92 74-106 mg/dL Calcium Level 9.7 8.7-10.4 mg/dL Patient alert. Complaining of flank pain. UA shows blood. Vitals stable. Answering all questions. WBC elevated. Possible passed kidney stone. Continues to have flank pain. Establish intravenous access. Was given fluids. Was given pain medication. Reviewed his history. Explained to the patient. Continue cardiac monitoring. Time of 1ST Reevaluation: 15:01 Reevaluation 1ST: Unchanged Patient Education/Counseling: Diagnosis, Treatment Family Education/Counseling: No Family Present Additional Information I reviewed the following notes from patient's past medical encounters: June 23 for palpitations. The following tests were ordered, and results were reviewed by me: CT Abd/Pel, CBC, BMP, UA I reviewed and agreed with the following test results read by other providers: CT Abd/Pel I discussed treatment and results with medical personnel. Departure 1 Departure Time of Disposition: 15:23 Impression: Primary Impression: Acute abdominal pain Additional Impressions: Hematuria Qualified Codes: R31.9 - Hematuria, unspecified Leukocytosis Qualified Codes: D72.829 - Elevated white blood cell count, unspecified Disposition: 09 ADMITTED INPATIENT Admit to: Med Surg Condition: Guarded Critical Care Note Critical Care Time?: No Stability Stability form required: No Heart Score Heart Score: Heart Score Response (Comments) Value History N/A 0 EKG N/A 0 Age N/A 0 Risk Factors N/A 0 Troponin N/A 0 Total 0 I personally scribed for JYOTI REINOSO MD ([email or web address]) on 08/18/24 at 14:04. Electronically submitted by Baldo Parks ([email or web address]). I personally scribed for JYOTI REINOSO MD ([email or web address]) on 08/18/24 at 15:33. Electronically submitted by Baldo Parks ([email or web address]). JYOTI REINOSO MD Aug 18, 2024 14:04
[2024-08-18 14:08] LABS: Urine Bacteria None Seen /hpf (None Seen)
[2024-08-18 14:21] LABS: Potassium 4.3 mmol/L (3.5-5.1); Sodium 143 mmol/L (136-145)
[2024-08-18 14:22] LABS: Anion Gap 4 (5-15); Calcium 9.7 mg/dL (8.7-10.4)
[2024-08-18 14:23] LABS: Carbon Dioxide 32 mmol/L (20-31); Chloride 107 mmol/L (98-107)
[2024-08-18 14:27] LABS: BUN/Creatinine Ratio 9.4 (10.0-20.0); Blood Urea Nitrogen 13 mg/dL (9-23); Glucose 92 mg/dL (74-106)
[2024-08-18 14:28] LABS: Urine Blood Negative /uL (Negative); Urine Clarity Clear (Clear); Urine Color Yellow (Yellow); Urine Hyaline Cast FEW /lpf (0 - 2); Urine Mucus FEW (None Seen); Urine Protein, UAD 1+ (Negative); Urine Specific Gravity 1.027 (1.001-1.035); Urine Urobilinogen 3 mg/dL (Negative); Urine WBC 1 /hpf (0 - 3)
--- NOTE | 2024-08-18 16:37 | DVH ---
CT ABDOMEN AND PELVIS WITHOUT CONTRAST CLINICAL HISTORY: stone TECHNIQUE: Multiple contiguous axial images of the abdomen and pelvis without intravenous contrast. The images were reformatted degenerate coronal and sagittal reconstructions. All CT scans at this medical facility are performed using dose modulation techniques as appropriate t o a performed exam including the following:Automated exposure control was utilized; adjustment of the MA and/or KV according to patient size; and use of iterative reconstruction technique. Radiation Dose Information: CT Dose: CTDI volume is 15.53 mGy. Dose-length product is 802.15 mGy*cm Comparison: None FINDINGS: Evaluation of the abdomen and pelvis is limited without intravenous contrast. There is a 3 mm calculus in the mid to lower pole of the right kidney. There is no evidence of left r enal calculus. There is no hydronephrosis. There is no evidence of a ureteral calculus or hydrourete r. The liver, gallbladder, pancreas, adrenal glands, and spleen appear within normal limits. There is no gross evidence of abdominal lymphadenopathy. There is no free fluid or free air. The stomach grossly appears unremarkable. The small and large bowel loops demonstrate normal caliber . There are scattered diverticula in the colon without evidence of acute diverticulitis. The abdominal aorta and IVC appear within normal limits. The bladder appears unremarkable for the degree of distention. There is no evidence of a bladder calc ulus. Pelvic organ appears within normal limits. There is no gross evidence of a pelvic mass. There is no free fluid collection. Lung bases are clear. There is no acute osseous abnormality. There is fusion hardware at the L5-S1 level. IMPRESSION: 1. There is no acute process in the abdomen and pelvis. 2. 3 mm nonobstructive right renal calculus. HS:Y
[2024-08-18] MEDS ORDERED: SODIUM CHLORIDE 0.9% 1,000 ML IV SCH (21:15)
[2024-08-18] MEDS ORDERED: NITROGLYCERIN 0.4 MG SL TAB SL PRN (21:15)
[2024-08-18] MEDS ORDERED: MORPHINE SULFATE INJ 2 MG/ml SYRG IV PRN (21:15)
[2024-08-18] MEDS ORDERED: ACETAMINOPHEN 325 MG TAB PO PRN (21:15)
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
--- NOTE | 2024-08-18 21:36 | DVH ---
EXAM: XY CHEST XRAY 1 VIEW TECHNIQUE: Single frontal chest radiograph CLINICAL HISTORY: chest pain COMPARISON: None Findings/Impression: Frontal chest radiograph demonstrates no acute osseous or superficial soft tissue abnormalities. The trachea is midline. The cardiac silhouette and mediastinum are within normal limits. No pneumothorax, pleural effusions, or consolidations.
[2024-08-18] MEDS ORDERED: HYDROcodone-ACET 10/325MG TAB PO PRN (21:45)
[2024-08-18] MEDS ORDERED: SODIUM CHLOR 0.9% PF (SALINE LOCK) 10ML VIAL/SYR IV SCH (22:00)
[2024-08-18] MEDS ORDERED: ATORVASTATIN 20 MG TAB PO SCH (22:00)
[2024-08-18] MEDS ORDERED: METOPROLOL TARTRATE 25 MG TAB PO SCH (22:00)
[2024-08-18] MEDS ORDERED: APIXABAN 5 MG TAB PO SCH (22:00)
[2024-08-18] MEDS ORDERED: cefTRIAXone 1GM/50ML D5W 50 ML IV SCH (22:30)
[2024-08-19] MEDS ORDERED: LOSARTAN POTASSIUM 50 MG TAB PO SCH (10:00)
--- NOTE | 2024-08-19 13:16 | DVHDSRES ---
Discharge Summary Date of Admission Resident Creating Document: ROGELIO ANGLIN RESIDENT Aug 18, 2024 at 21:07 Date of Discharge: Aug 19, 2024 Admitting Diagnosis Right lower back intractable pain Labs/Diagnostic Data: Laboratory Results Test 08/18/24 14:07 08/18/24 13:41 Urine Color Yellow (Yellow) Urine Clarity Clear (Clear) Urine pH 6.0 (5.0-9.0) Urine Specific [place] 1.027 (1.001-1.035) Urine Protein 1+ (Negative) Urine Ketones Trace (Negative) Urine Blood Negative /uL (Negative) Urine Nitrite Negative (Negative) Urine Bilirubin Negative (Negative) Urine Urobilinogen 3 mg/dL (Negative) Urine Leukocyte Esterase Negative /uL (Negative) Urine RBC 3 /hpf (0 - 3) Urine WBC 1 /hpf (0 - 3) Urine Squamous Epithelial Cells Few /hpf (<5) Urine Bacteria None seen /hpf (None Seen) Urine Hyaline Casts Few /lpf (0 - 2) Urine Mucus Few (None Seen) Urine Glucose Normal mg/dL (Normal) White Blood Count 12.1 10^3/uL (4.4-10.8) Red Blood Count 5.93 10^6/uL (4.5-5.90) Hemoglobin 13.9 g/dL (13.5-17.5) Hematocrit 44.5 % (41.0-53.0) Mean Corpuscular Volume 75.1 fL (80.0-100.0) Mean Corpuscular Hemoglobin 23.5 pg (28.0-32.0) Mean Corpuscular Hemoglobin Concent 31.3 g/dL (32.0-36.0) Red Cell Distribution Width 15.7 % (11.8-14.3) Platelet Count 372 10^3/uL (140-450) Mean Platelet Volume 7.6 fL (6.9-10.8) Neutrophils (%) (Auto) 55.8 % (37.0-80.0) Lymphocytes (%) (Auto) 33.9 % (10.0-50.0) Monocytes (%) (Auto) 8.0 % (0.0-12.0) Eosinophils (%) (Auto) 1.5 % (0.0-7.0) Basophils (%) (Auto) 0.8 % (0.0-2.0) Neutrophils # (Auto) 6.8 10 ^3/uL (1.6-8.6) Lymphocytes # (Auto) 4.1 10 ^3/uL (0.4-5.4) Monocytes # (Auto) 1.0 10 ^3/uL (0-1.3) Eosinophils # (Auto) 0.2 10 ^3/uL (0-0.8) Basophils # (Auto) 0.1 10 ^3/uL (0-0.2) Nucleated Red Blood Cells 0.0 % Sodium Level 143 mmol/L (136-145) Potassium Level 4.3 mmol/L (3.5-5.1) Chloride Level 107 mmol/L (98-107) Carbon Dioxide Level 32 mmol/L (20-31) Anion Gap 4 (5-15) Blood Urea Nitrogen 13 mg/dL (9-23) Creatinine 1.38 mg/dL (0.700-1.30) Glomerular Filtration Rate Calc 62 mL/min (>90) BUN/Creatinine Ratio 9.4 (10.0-20.0) Serum Glucose 92 mg/dL (74-106) Hemoglobin A1c 6.1 % A1C (<5.7) Calcium Level 9.7 mg/dL (8.7-10.4) B-Type Natriuretic Peptide 62.21 pg/mL (0-100) Thyroid Stimulating Hormone (TSH) 1.74 uIU/mL (0.55-4.78) Other Laboratory Tests 08/18/24 13:41 Brief Hx & Hospital Course: This is a 49-year-old male with past medical history of hypertension, atrial fibrillation, hyperlipidemia, chronic back pain presented to the ED with a chief complaint of right lower back pain and nausea for 4 days prior to this admission. According to the patient right lower back pain started 4 days ago which was crampy in nature, 06/09, radiates to right groin, aggravated during movement without any relieving factor and associated with nausea. He also complaint of fever with chills and sweats for 1 day but he did not record the temperature. He denies chest pain, shortness of breath, palpitation, vomiting, dysuria, hematuria, any change in bowel habit, recent traveling or any sick contact. CT abdomen pelvis showed no acute process in the abdomen and pelvis and a 3 mm nonobstructive right renal calculus. Chest x-ray showed no acute osseous or superficial soft tissue abnormalities. 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 Patient was counseled about treatment plan, medications, possible side effects, patientverbalized understanding. All questions were answered to the best of my ability. This discharge took greater then 30 minutes in planning, reviewing documentation, counseling the patient, and discussing with other team members." ASSESSMENT ASSESSMENT Assessment Date of Service: Aug 19, 2024 Billing Provider: DAYANA WALTERS MD Common Visit Codes: [id number]/OBS DISCH DAY >30min MARY GRACE ESTES Aug 19, 2024 13:16 DAYANA WALTERS MD Aug 20, 2024 17:34
[2024-08-19] MEDS ORDERED: TAMSULOSIN HYDROCHLORIDE 0.4 MG CAP PO SCH (18:00)
== END 2024-08-18 23:23 | disposition left against medical advice (07) | DRG 465 ==
LOC: ER 12:30 → OVERFLOW 21:07 → TELE 21:52
PROVIDERS: ADMIT Student in an Organized Health Care Education/Training Program; ATTEND Student in an Organized Health Care Education/Training Program
DX: N20.0 Calculus of kidney (principal); N17.0 Acute kidney failure with tubular necrosis; I48.20 Chronic atrial fibrillation, unspecified; G62.9 Polyneuropathy, unspecified; F17.210 Nicotine dependence, cigarettes, uncomplicated; D72.829 Elevated white blood cell count, unspecified; Z53.29 Procedure and treatment not carried out because of patient's decision for other reasons; G89.29 Other chronic pain; N18.2 Chronic kidney disease, stage 2 (mild); I12.9 Hypertensive chronic kidney disease with stage 1 through stage 4 chronic kidney disease, or unspecified chronic kidney disease; Z79.899 Other long term (current) drug therapy
CPT/HCPCS: 36415; 71045; 74176; 80048; 81001; 83036; 83880; 84443; 85025; G0378